=== PATIENT | male | born 1970 | race Caucasian/White ===

== ENCOUNTER 2019-10-24 18:28 | Inpatient (IN) | payer MEDICARE, OTHER ==
[~2019-10-24] VITALS: Ht 182.9 cm; Wt 95.3 kg
[2019-10-24] MEDS ORDERED: LORAZEPAM INJ 2 MG/ML VIAL ONE (18:38)
--- NOTE | 2019-10-24 18:40 | NUR ---
c/o abd sharp pain since 3pm today, 6/10 pain scale. Patient a/ox4, breathing even and unlabored, no sob noted, Dr. Felipe at bedside for eval.
--- NOTE | 2019-10-24 18:45 | NUR ---
Patient placed on o2 at 15lpm via NRB while patient was seizing. Seizure precaution observed.
--- NOTE | 2019-10-24 18:51 | NUR ---
GENERALIZED TONIC CLONIC SEIZURE WHILE DR BURGOS WAS DOING A MEDICAL EXAM,SL ESTABLISHED, MEDICATED WITH ATIVAN IVP ORDERED
[2019-10-24 18:56] LABS: BASOPHILS # (AUTO) 0.1 /CMM (0.0-0.2); BASOPHILS % (AUTO) 0.7 % (0.0-2.0); EOSINOPHILS % (AUTO) 2.2 % (0.0-6.0); HEMATOCRIT 48 % (39-51); HEMOGLOBIN 15.6 g/dL (13.5-17.5); LYMPHOCYTES # (AUTO) 5.3 /CMM (0.8-4.8); LYMPHOCYTES % (AUTO) 39.2 % (20.0-44.0); MEAN CORPUSCULAR HGB CONC 33 g/dl (31.0-36.0); MEAN CORPUSCULAR VOLUME 93 fL (80-96); MONOCYTES # (AUTO) 1.5 /CMM (0.1-1.30); MONOCYTES % (AUTO) 10.8 % (2.0-12.0); NEUTROPHILS # (AUTO) 6.3 /CMM (1.8-8.9); NEUTROPHILS % (AUTO) 47.1 % (43.0-81.0); PLATELET COUNT (AUTO) 325 /CMM (150-450); RED BLOOD CELL COUNT(AUTO) 5.14 MIL/uL (4.5-6.0); WHITE BLOOD COUNT (AUTO) 13.4 K/uL (4.3-11.0)
--- NOTE | 2019-10-24 18:58 | NUR ---
iv line established and blood drawn.
[2019-10-24] MEDS ORDERED: IV NS 0.9% 1,000 ML BAG IV ONE (19:00)
[2019-10-24] MEDS ORDERED: LEVETIRACETAM (500MG) 500 MG in IV NS 0.9% 100 ML IV ONE (19:00)
[2019-10-24] MEDS ORDERED: LORAZEPAM INJ 2 MG/ML VIAL IV ONE (19:00)
--- NOTE | 2019-10-24 19:11 | NUR ---
REPORT RECEIVED FROM HERNESTO GARCIA FOR [facility]
--- NOTE | 2019-10-24 19:12 | NUR ---
XRAY AT BEDSIDE
--- NOTE | 2019-10-24 19:13 | NUR ---
PT AAOX2, VSS, RESPIRATIONS EVEN AND UNLABORED ON RA W/ NAD NOTED. PT CONNECTED TO THE LASER BEAM MACHINE OPERATOR AND POX. CALL LIGHT WITHIN REACH. WILL CONTINUE TO MONITOR PT.
--- NOTE | 2019-10-24 19:25 | NUR ---
PT TAKEN TO RADIOLOGY FOR CT
--- NOTE | 2019-10-24 19:35 | NUR ---
PT BACK FROM RADIOLOGY
[2019-10-24 19:42] LABS: CALCIUM, SERUM 9.3 mg/dL (8.5-10.1); CARBON DIOXIDE 14 mmol/L (21-32); CHLORIDE 101 mmol/L (98-107); CREATININE 1.7 mg/dL (0.6-1.3); GLUCOSE 133 mg/dL (74-106); SODIUM SERUM 140 mmol/L (136-145); UREA NITROGEN, BLOOD 11 mg/dL (7-18)
[2019-10-24 19:48] LABS: ALANINE AMINOTRANSFERASE 58 U/L (12-78); ALBUMIN 4.1 g/dL (3.4-5.0); ALCOHOL, BLOOD < 3 mg/dL (0-0); ALKALINE PHOSPHATASE 94 U/L (46-116); ASPARTATE AMINOTRANSFERASE 25 U/L (15-37); BILIRUBIN,DIRECT 0.1 mg/dL (0.0-0.2); BILIRUBIN,TOTAL 0.4 mg/dL (0.2-1.0)
--- NOTE | 2019-10-24 20:20 | NUR ---
COVID SWAB COLLECTED AND SENT TO LAB
[2019-10-24] MEDS ORDERED: ACETAMINOPHEN 325 MG TABLET PO PRN (20:30)
[2019-10-24] MEDS ORDERED: MAG HYDROX/AL HYDROX/SIMETH 30 ML UDC PO PRN (20:30)
[2019-10-24] MEDS ORDERED: HYDROCODONE/APAP 5/325MG TABLET PO PRN (20:30)
[2019-10-24] MEDS ORDERED: ONDANSETRON HCL/PF 4 MG/2 ML VIAL IVP PRN (20:30)
[2019-10-24] MEDS ORDERED: Z GUARD REMEDY 2 OZ OINT TP PRN (20:30)
[2019-10-24] MEDS ORDERED: MAGNESIUM HYDROXIDE 30 ML UDC PO PRN (20:30)
--- NOTE | 2019-10-24 21:34 | NUR ---
URINE COLLECTED AND SENT TO LAB
--- NOTE | 2019-10-24 21:46 | NUR ---
COVID RESULTS RECEIVED FROM LAB (-)
--- NOTE | 2019-10-24 21:54 | NUR ---
NURSE WILL CALL BACK FOR REPORT
--- NOTE | 2019-10-24 22:10 | NUR ---
REPORT GIVEN TO HERNESTO WASHINGTON FOR [facility]
[2019-10-24] MEDS ORDERED: LORA-259 PO (22:19)
[2019-10-24] MEDS ORDERED: BUPR100T13 PO (22:21)
[2019-10-24] MEDS ORDERED: LITH300T3 PO (22:21)
[2019-10-24] MEDS ORDERED: OLAN10TA3 PO (22:22)
--- NOTE | 2019-10-24 22:51 | NUR ---
PT TRANSFERRED TO ROOM IN STABLE CONDITION
[2019-10-24] MEDS: IV NS 0.9% 1,000 ML IV PRN (22:52)
--- NOTE | 2019-10-24 23:00 | NUR ---
RATTLING MACHINE TENDER NOTED, RECEIVED 48 YEAR OLD MALE FROM ER DEPARTMENT VIA STRETCHER, A/O X4 ABLE TO MAKE DECISIONS KNOW, BREATHING EVEN AND UNLABORED, AT RA NO S/S OF ANY ACUTE RESPIRATORY DISTRESS NOTED, UNDER MEDICAL CONDITION OF DR SOMMERS, WITH ADMITTING DX SEIZURES, NO SS OF ANY PAIN, NO SEIZURE ACTIVITY NOTED, PATIENT PLACED IN BED WITH ALL SAFETY PRECAUTIONS, 2 BILATERAL S/R OF BED UP AND PADDED FOR SEIZURE PRECAUTIONS, ALL NEEDS PROVIDED, BED LOCKED AND LOWEST POSITION, CALL LIGHT W/W REACH, WILL CONTINUE TO MONITOR CLOSELY.
[2019-10-24] MEDS ORDERED: buPROPion 100 MG TABLET PO SCH (23:30)
[2019-10-24] MEDS ORDERED: LORAZEPAM INJ 2 MG/ML VIAL IV PRN (23:30)
[2019-10-25] VITALS: BP 148/77
[2019-10-25] MEDS ORDERED: BUPROPION XL 150 MG TAB.ER.24 PO SCH
[2019-10-25] MEDS: LORAZEPAM 1 MG TABLET PO SCH ×3 (00:42→16:17)
[2019-10-25 06:20] LABS: BASOPHILS % (AUTO) 0.5 % (0.0-2.0); EOSINOPHILS % (AUTO) 2.9 % (0.0-6.0); HEMATOCRIT 38 % (39-51); LYMPHOCYTES # (AUTO) 3.8 /CMM (0.8-4.8); LYMPHOCYTES % (AUTO) 40.4 % (20.0-44.0); MEAN CORPUSCULAR HGB CONC 34 g/dl (31.0-36.0); MEAN CORPUSCULAR VOLUME 90 fL (80-96); MONOCYTES % (AUTO) 10.4 % (2.0-12.0); NEUTROPHILS # (AUTO) 4.3 /CMM (1.8-8.9); NEUTROPHILS % (AUTO) 45.8 % (43.0-81.0); PLATELET COUNT (AUTO) 260 /CMM (150-450); RED BLOOD CELL COUNT(AUTO) 4.29 MIL/uL (4.5-6.0); WHITE BLOOD COUNT (AUTO) 9.3 K/uL (4.3-11.0)
--- NOTE | 2019-10-25 07:00 | NUR ---
GUN SEALING MACHINE OPERATOR CLOSING NOTES, PATIENT IN BED, A/X4, AT RA NO SOB OR DISTRESS NOTED, NSR IN TELE MONITOR WITH HR IN 80-90S MOSTLY DURING THE NIGHT, NO SIGNIFICANT CHANGE IN CONDITION DURING THE NIGHT, NO EPISODES OF SEIZURES, RIGHT HAND 20G PIV LINE WITH 0.9% NS INFUSING ORDERED, AND PATIENT TOLERATED WELL, ALL SAFETY MEASURERS IMPLEMENTED, CALL LIGHT IN REACH, BED IN LOCKED AND IN LOWEST POSITIONING, WILL ENDORSE CONTINUITY OF CARE TO ONCOMING NURSE.
[2019-10-25 07:06] LABS: CALCIUM, SERUM 8.2 mg/dL (8.5-10.1); MAGNESIUM 2.3 mg/dL (1.8-2.4); PHOSPHORUS 4.3 mg/dL (2.5-4.9); POTASSIUM 3.4 mmol/L (3.5-5.1)
--- NOTE | 2019-10-25 07:49 | NUR ---
DISTRICT LOSS PREVENTION MANAGER NOTE PATIENT IN BED, RESTING COMFORTABLY , ON RA NO SOB NOTED AT THIS TIME ,ON SEIZURE PRECAUTION ,SIDE RAILS UP AND PADDED, CALL LIGHT WITHIN REACH , PLAN OF CARE DISCUSSED WITH PATIENT, ON TELE MONITOR SR HR 83,BED IN LOWEST AND LOCKED POSITION ON IVF ORDERED, WILL CONT TO MONITOR
[2019-10-25 08:34] VITALS: BP 123/92
[2019-10-25] MEDS ORDERED: LITHIUM CARBONATE 150 MG CAPSULE PO SCH (09:00)
[2019-10-25] MEDS ORDERED: LEVETIRACETAM (250 MG) 250 MG TABLET PO SCH (09:00)
[2019-10-25] MEDS ORDERED: POTASSIUM CHLORIDE 20 MEQ TAB.PRT.SR PO SCH (10:00)
--- NOTE | 2019-10-25 10:35 | NUR ---
GLASS CALIBRATOR NOTE DR ZARAGOZA SPOKE WITH PATIENT ON FACE LEANNE
[2019-10-25 12:00] VITALS: BP 135/94
--- NOTE | 2019-10-25 13:04 | NUR ---
ROCK STAR NOTE PER HANK DEMPSEY RN MEASUREMENT PSYCHOLOGIST [place] PSYCH EVAL, FACE SHEET FAXED TO [facility] UNIT DR MEMBRENO RESEARCH CHIEF ENGINEER FOR TODAY
[2019-10-25] MEDS: IV NS 0.9% 1,000 ML IV PRN (15:50)
[2019-10-25 16:33] VITALS: BP 145/103
--- NOTE | 2019-10-25 17:00 | NUR ---
PODIATRY ASSISTANT NOTE CALLED RADIOLOGY ABOUT EEG SPOKE WITH BRITANY STATED WILL DO TOMORROW
[2019-10-25] MEDS ORDERED: OLANZAPINE 10 MG TABLET PO SCH (18:00)
--- NOTE | 2019-10-25 18:23 | NUR ---
OPERATIVE SUPERVISOR NOTE CONSENT FOR CT ANGIO GRAM DONE ,CALLED RADIOLOGY SPOKE WITH BRITANY STATED THAT WILL BE DONE TOMORROW
--- NOTE | 2019-10-25 18:46 | NUR ---
STRUCTURER NOTE SPOKE WITH RADIOLOGY STATED THAT IF CT ANGIO NOT STAT, WILL BE DONE TOMORROW NURSING RESOURCE SPECIALIST TEACHER SHELIA NOTIFIED
--- NOTE | 2019-10-25 19:26 | NUR ---
STERILE PROCESSING TECHNOLOGIST NOTE EEG DOING NOW AND DR MARSHALL NOTIFIED THAT CTCA WILL BE DONE TOMORROW
--- NOTE | 2019-10-25 19:30 | NUR ---
RAMP BOSS NOTE PT IN BED A/O X 4, NO SOB, NO DISTRESS OR DISCOMFORT NOTED. DENIES PAIN. SL RAC IS OCCLUDED, DC'D THE SL SECURED WITH 2X2 GAUZE, NO BLEEDING NOTED. WILL REINSERT NEW LINE AFTER EEG WHICH IS IN PROGRESS. ON TELE SR HR 84. SIDE RAILS UP X 2 AND CALL LIGHT WITHIN REACH. VSS. CONTINUE TO MONITOR HIM.
[2019-10-25 20:00] VITALS: BP 135/94
[2019-10-25] MEDS: LITHIUM CARBONATE 150 MG CAPSULE PO SCH (20:07)
--- NOTE | 2019-10-25 23:00 | NUR ---
SALES FLOOR TEAM MEMBER NOTE PT WOKE UP AND INSERTED NEW IV LINE IN RT HAND #20 G WITH GOOD BACK FLOW OF BLOOD. RESUMED IVF NS AT 75 ML/HR, NO S/S OF INFILTRATION NOTED.
--- NOTE | 2019-10-26 01:02 | NUR ---
EXTRUSION MANAGER NOTE INFORMED SECOND CUTTER AMDELEINE REGARDING ABNORMAL EEG RESULT RHYTHEM. PER SECOND CUTTER NO NEW ORDER AT THIS TIME. ALSO PT DENIES ANY CHEST PAIN OR DISCOMFORT. PT ASLEEP AND EASILY AROUSABLE.
[2019-10-26 04:00] VITALS: BP 141/101
--- NOTE | 2019-10-26 06:34 | NUR ---
OPERATIONS FORESTER NOTE LFA NEW LINE INSERTED #20 G WITH GOOD BACK FLOW OF BLOOD BY CHARGE NURSE CHITO. ON TELE SR 80. PT IN BED AWAKE. NO DISTRESS OR DISCOMFORT NOTED. DENIES PAIN. IVF INFUSING WELL , NO S/S OF INFILTRATION NOTED. ALL NEEDS ATTENDED. WILL ENDORSE TO DAY SHIFT NURSE FOR CONTINUE TO CARE.
[2019-10-26 07:21] LABS: CALCIUM, SERUM 8.6 mg/dL (8.5-10.1); POTASSIUM 4.3 mmol/L (3.5-5.1)
--- NOTE | 2019-10-26 07:22 | NUR ---
THEATRICAL SCENIC DESIGNER/MIKE NOTE RECEIVED PT IN BED ALERT, AWAKE AND ORIENTED X4. PT IS CURRENTLY IN STABLE CONDITION AT THIS TIME. PT IS ON ROOM AIR SATURATING AT 98% AT THIS TIME. PT IS ON TELE MONITORING WITH SINUS RHYTHM CURRENTLY. PT IS AMBULATORY AND ABLE TO GO TO THE RESTROOM WITHOUT ASSISTANCE. PT IS ON REGULAR DIET. PT HAS A RIGHT HAND 20' AND A LEFT FOREARM 20' INTACT, PATENT AND FLUSHING WELL. NO ACUTE DISTRESS OR SOB NOTED AT THIS TIME. PT IS AWARE THAT HE HAS A CT ANGIO THIS MORNING. PT IS CURRENTLY NPO. MORNING MEDS HELD DUE TO PROCEDURE. CHARGE NURSE AWARE OF PROCEDURE.CALL LIGHT WITHIN REACH AND FUNCTIONING. BED LOCKED AND IN LOWEST POSITION. WILL CONTINUE TO MONITOR AND ASSESS PT.
--- NOTE | 2019-10-26 07:27 | NUR ---
SODA FOUNTAIN OPERATOR/MIKE NOTE PT WAS PICKED UP BY CT VIA WHEELCHAIR. PT LEFT IN STABLE CONDITION. WILL AWAIT PT'S RETURN.
[2019-10-26] MEDS ORDERED: NITROGLYCERIN 0.4 MG/TAB BOTTLE SL ONE (07:30)
[2019-10-26] MEDS ORDERED: METOPROLOL TARTRATE INJ 5 MG/5 ML AMPUL IVP PRN (07:30)
[2019-10-26] MEDS ORDERED: IV NS 0.9% 250 ML IV ONE (07:32)
[2019-10-26] MEDS ORDERED: IOHEXOL-350 100 ML VIAL IV ONE (07:32)
[2019-10-26] MEDS ORDERED: NITROGLYCERIN 0.4 MG/TAB BOTTLE ONE (07:36)
[2019-10-26] MEDS ORDERED: METOPROLOL TARTRATE INJ 5 MG/5 ML AMPUL ONE (07:37)
--- NOTE | 2019-10-26 07:42 | NUR ---
Patient refused CTCA exam, Dominga Abreu RN made aware.
--- NOTE | 2019-10-26 07:42 | NUR ---
CATALYST OPERATOR CHIEF NOTE PT WAS TRANSFERRED BY JEANIE BACK TO ROOM. PT IS IN STABLE CONDITION AT THIS TIME. NO COMPLAINS OF PAIN OR DISCOMFORT. PT REFUSED TO DO THE CT ANGIO AND RETURNED BACK TO THE UNIT. INFORMED DR. MARSHALL. CHARGE NURSE AWARE. PT RESUMED DIET. WILL CONTINUE TO MONITOR AND ASSESS PT.
--- NOTE | 2019-10-26 07:44 | NUR ---
Patient transported back to [place] [id number] via wheelchair. VSS.
[2019-10-26 08:00] VITALS: BP 123/90
[2019-10-26 08:23] VITALS: BP 123/90
[2019-10-26] MEDS: LITHIUM CARBONATE 150 MG CAPSULE PO SCH (08:23)
[2019-10-26] MEDS: LORAZEPAM 1 MG TABLET PO SCH (08:23)
[2019-10-26] MEDS ORDERED: VALSARTAN 80 MG TABLET PO SCH (09:00)
[2019-10-26] MEDS ORDERED: BUPROPION XL 150 MG TAB.ER.24 PO SCH (13:00)
[2019-10-26] MEDS ORDERED: OLAN10TA3 PO (14:06)
--- NOTE | 2019-10-26 14:45 | NUR ---
PATIENT DISCHARGE AMBULATORY DISCHARGE INSTRUCTION GIVEN.IV D/C.
[2019-10-26] MEDS ORDERED: OLANZAPINE 10 MG TABLET PO SCH (18:00)
== END 2019-10-26 14:37 | disposition home or self-care (01) | DRG 100 ==
LOC: ER 18:30 → TELE1 21:50 → MEDSG1 10-26 08:02
PROVIDERS: ADMIT Internal Medicine; ATTEND Nurse Practitioner Acute Care
DX: R56.9 Unspecified convulsions (principal); N17.0 Acute kidney failure with tubular necrosis; F31.60 Bipolar disorder, current episode mixed, unspecified; R07.89 Other chest pain; E87.6 Hypokalemia; F41.9 Anxiety disorder, unspecified; D72.829 Elevated white blood cell count, unspecified; M84.48XS Pathological fracture, other site, sequela; T43.295A Adverse effect of other antidepressants, initial encounter; Y92.009 Unspecified place in unspecified non-institutional (private) residence as the place of occurrence of the external cause; F39 Unspecified mood [affective] disorder; I12.9 Hypertensive chronic kidney disease with stage 1 through stage 4 chronic kidney disease, or unspecified chronic kidney disease; N18.9 Chronic kidney disease, unspecified; T42.4X5A Adverse effect of benzodiazepines, initial encounter; T43.595A Adverse effect of other antipsychotics and neuroleptics, initial encounter
CPT/HCPCS: 36415; 70450-TC; 71045-TC; 80048-TC; 80076-TC; 80305; 82962-TC; 83735-TC; 84100-TC; 84484-TC; 85025-TC; 85730-TC; 87081-TC; 93307-TC; 95819-TC; C9803-CS; G0378; G0480; J1953; J2060; J3490; J7030; J7050; Q9967

== ENCOUNTER 2019-12-19 22:24 | Emergency (ER) | payer MEDICARE, OTHER ==
[~2019-12-19] VITALS: Ht 182.9 cm; Wt 95.3 kg
[~2019-12-19 22:24] MED LIST: LITH300T3 PO; LORA-259 PO; OLAN10TA3 PO
--- NOTE | 2019-12-19 22:25 | NUR ---
[id number] FROM HOME S/P WITNESSED SEIZURE LASTING APPROX 1 MIN. -TRAUMA PER RA, BS 100,PT AAOX4, AMBULATOR, -SOB, NAD NOTED. VSS, PENDING MD WALDRON
[2019-12-19] MEDS ORDERED: LEVETIRACETAM (500MG) 500 MG in IV NS 0.9% 100 ML IV ONE (22:30)
[2019-12-19] MEDS ORDERED: IV NS 0.9% 500 ML BAG IV ONE (22:30)
[2019-12-19] MEDS ORDERED: LORAZEPAM INJ 2 MG/ML VIAL IVP ONE (22:30)
[2019-12-19] MEDS ORDERED: LEVETIRACETAM (500MG) 500 MG/5 ML VIAL IV ONE (22:43)
[2019-12-19] MEDS ORDERED: LORAZEPAM INJ 2 MG/ML VIAL ONE (22:44)
[2019-12-19 22:47] LABS: BASOPHILS # (AUTO) 0.2 /CMM (0.0-0.2); BASOPHILS % (AUTO) 2.1 % (0.0-2.0); EOSINOPHILS % (AUTO) 4.4 % (0.0-6.0); HEMATOCRIT 43 % (39-51); HEMOGLOBIN 14.2 g/dL (13.5-17.5); LYMPHOCYTES # (AUTO) 3.4 /CMM (0.8-4.8); LYMPHOCYTES % (AUTO) 41.9 % (20.0-44.0); MEAN CORPUSCULAR HGB CONC 33 g/dl (31.0-36.0); MEAN CORPUSCULAR VOLUME 89 fL (80-96); MONOCYTES # (AUTO) 0.8 /CMM (0.1-1.30); MONOCYTES % (AUTO) 9.7 % (2.0-12.0); NEUTROPHILS # (AUTO) 3.4 /CMM (1.8-8.9); NEUTROPHILS % (AUTO) 41.9 % (43.0-81.0); PLATELET COUNT (AUTO) 310 /CMM (150-450); RED BLOOD CELL COUNT(AUTO) 4.78 MIL/uL (4.5-6.0); WHITE BLOOD COUNT (AUTO) 8.1 K/uL (4.3-11.0)
[2019-12-19 22:53] LABS: CALCIUM, SERUM 9.2 mg/dL (8.5-10.1); CARBON DIOXIDE 22 mmol/L (21-32); CHLORIDE 102 mmol/L (98-107); CREATININE 1.3 mg/dL (0.6-1.3); GLUCOSE 106 mg/dL (74-106); POTASSIUM 3.8 mmol/L (3.5-5.1); SODIUM SERUM 137 mmol/L (136-145); UREA NITROGEN, BLOOD 7 mg/dL (7-18)
[2019-12-19 22:59] LABS: ALANINE AMINOTRANSFERASE 51 U/L (12-78); ALBUMIN 3.8 g/dL (3.4-5.0); ALCOHOL, BLOOD < 3 mg/dL (0-0); ALKALINE PHOSPHATASE 80 U/L (46-116); ASPARTATE AMINOTRANSFERASE 21 U/L (15-37); BILIRUBIN,DIRECT 0.1 mg/dL (0.0-0.2); BILIRUBIN,TOTAL 0.2 mg/dL (0.2-1.0); TOTAL PROTEIN, SERUM 7.4 g/dL (6.4-8.2)
--- NOTE | 2019-12-20 00:24 | NUR ---
Patient discharged to home in stable condition. Written and verbal after care instructions given. Patient verbalizes understanding of instruction. IV removed. Catheter intact and site benign. Pressure and 4x4 applied to site. No bleeding noted.
[2019-12-20 03:26] VITALS: BP 155/100
== END 2019-12-20 00:24 | disposition home or self-care (01) ==
LOC: ER 22:25
DX: R56.9 Unspecified convulsions (principal); R51.9 Headache, unspecified; I10 Essential (primary) hypertension; F31.9 Bipolar disorder, unspecified; F41.9 Anxiety disorder, unspecified; Z79.899 Other long term (current) drug therapy
CPT/HCPCS: 36415; 70450; 71045; 80048; 80076; 80307; 80320; 84484; 85025; 93005; 96365; 96375; 99285; J1953 ×2; J2060; J7030 ×2; J7040; G0480

== ENCOUNTER 2020-01-23 21:40 | Emergency (ER) | payer MEDICARE, OTHER ==
[~2020-01-23] VITALS: Ht 182.9 cm; Wt 88.5 kg
[2020-01-23] MEDS ORDERED: ONDANSETRON HCL/PF 4 MG/2 ML VIAL ONE (23:25)
[2020-01-23] MEDS ORDERED: IV NS 0.9% 1,000 ML BAG IV ONE (23:30)
[2020-01-23] MEDS ORDERED: ONDANSETRON HCL/PF 4 MG/2 ML VIAL IVP ONE (23:30)
[2020-01-23 23:33] LABS: BASOPHILS % (AUTO) 0.3 % (0.0-2.0); EOSINOPHILS % (AUTO) 0.3 % (0.0-6.0); HEMATOCRIT 53 % (39-51); LYMPHOCYTES # (AUTO) 2.7 /CMM (0.8-4.8); MEAN CORPUSCULAR HGB CONC 34 g/dl (31.0-36.0); MEAN CORPUSCULAR VOLUME 89 fL (80-96); MONOCYTES # (AUTO) 0.7 /CMM (0.1-1.30); NEUTROPHILS # (AUTO) 5.3 /CMM (1.8-8.9); NEUTROPHILS % (AUTO) 60.4 % (43.0-81.0); PLATELET COUNT (AUTO) 370 /CMM (150-450); RED BLOOD CELL COUNT(AUTO) 6.04 MIL/uL (4.5-6.0); WHITE BLOOD COUNT (AUTO) 8.8 K/uL (4.3-11.0)
[2020-01-23 23:42] LABS: CALCIUM, SERUM 9.8 mg/dL (8.5-10.1); CREATININE 0.9 mg/dL (0.6-1.3); POTASSIUM 3.6 mmol/L (3.5-5.1)
[2020-01-23 23:47] LABS: ALBUMIN 4.6 g/dL (3.4-5.0); BILIRUBIN,DIRECT 0.1 mg/dL (0.0-0.2); BILIRUBIN,TOTAL 0.4 mg/dL (0.2-1.0)
[2020-01-24 00:08] LABS: LYMPHOCYTES % (MANUAL) 35 % (16-48); MONOCYTES % (MANUAL) 8 % (0-11.0); NEUTROPHILS % (MANUAL) 57 (42-76)
[2020-01-24 00:12] VITALS: BP 147/93
--- NOTE | 2020-01-24 00:20 | NUR ---
pcr swab collected, sent to lab.
--- NOTE | 2020-01-24 00:20 | NUR ---
Patient discharged to home in stable condition. Written and verbal after care instructions given. Patient verbalizes understanding of instruction.
--- NOTE | 2020-01-24 00:20 | NUR ---
IV removed. Catheter intact and site benign. Pressure and 4x4 applied to site. No bleeding noted.
--- NOTE | 2020-01-24 22:39 | NUR ---
LAB CALLED REGARDING NEGATIVE COVID RESULT
== END 2020-01-24 00:21 | disposition home or self-care (01) ==
LOC: ER 21:42
DX: R10.10 Upper abdominal pain, unspecified (principal); Z20.828 Contact with and (suspected) exposure to other viral communicable diseases; F31.9 Bipolar disorder, unspecified; I10 Essential (primary) hypertension; K21.9 Gastro-esophageal reflux disease without esophagitis; Z82.49 Family history of ischemic heart disease and other diseases of the circulatory system
CPT/HCPCS: 36415; 80048; 80076; 83690; 85007; 85025; 96361; 96374; 99283; J2405; J7030; C9803; U0003

== ENCOUNTER 2021-03-26 10:15 | Emergency (ER) | payer MEDICARE, OTHER ==
[~2021-03-26] VITALS: Ht 182.9 cm; Wt 87.1 kg
--- NOTE | 2021-03-26 10:50 | NUR ---
The patient bibs for c/o "I was mad last night and punched a wall Right mid finger hurts. Also been Having blood in stool last one 2d ago. I Drink Alcohol like a fish". The patient is alert and oriented x3. Denies SOB. In room air, respiration regular and unlabored. Will continue to monitor the patient.
--- NOTE | 2021-03-26 11:26 | NUR ---
EXPORT DOCUMENTS CLERK AT THE BEDSIDE
[2021-03-26] MEDS ORDERED: IV NS 0.9% 500 ML BAG IV ONE (11:30)
[2021-03-26] MEDS ORDERED: HYDROCODONE/APAP 5/325MG TABLET PO ONE (11:30)
[2021-03-26 11:57] LABS: BASOPHILS # (AUTO) 0.1 K/uL (0.0-0.2); BASOPHILS % (AUTO) 0.6 % (0.0-2.0); EOSINOPHILS % (AUTO) 0.2 % (0.0-6.0); HEMATOCRIT 47 % (39-51); LYMPHOCYTES # (AUTO) 1.6 K/uL (0.8-4.8); LYMPHOCYTES % (AUTO) 15.6 % (20.0-44.0); MEAN CORPUSCULAR HGB CONC 34 g/dl (31.0-36.0); MEAN CORPUSCULAR VOLUME 89 fL (80-96); MONOCYTES # (AUTO) 0.5 K/uL (0.1-1.30); MONOCYTES % (AUTO) 4.6 % (2.0-12.0); NEUTROPHILS # (AUTO) 7.9 K/uL (1.8-8.9); PLATELET COUNT (AUTO) 335 K/uL (150-450); RED BLOOD CELL COUNT(AUTO) 5.31 MIL/uL (4.5-6.0); WHITE BLOOD COUNT (AUTO) 9.9 K/uL (4.3-11.0)
[2021-03-26] MEDS ORDERED: HYDROCODONE/APAP 5/325MG TABLET ONE (12:04)
[2021-03-26 12:18] LABS: ALBUMIN 3.9 g/dL (3.4-5.0); BILIRUBIN,DIRECT 0.1 mg/dL (0.0-0.2); BILIRUBIN,TOTAL 0.4 mg/dL (0.2-1.0); CREATININE 0.8 mg/dL (0.6-1.3); POTASSIUM 4.7 mmol/L (3.5-5.1); TOTAL PROTEIN, SERUM 7.8 g/dL (6.4-8.2)
[2021-03-26 16:58] LABS: ALCOHOL, BLOOD 48 mg/dL (0-0)
[2021-03-26 16:59] LABS: ACETAMINOPHEN < 0 ug/ml (10-30)
--- NOTE | 2021-03-26 18:32 | NUR ---
URINE COLLECTED AND SENT TO THE LAB
--- NOTE | 2021-03-26 18:57 | NUR ---
COVID ANTIGEN SWAB DONE AND SENT TO THE LAB
[2021-03-26 19:56] LABS: BILIRUBIN,URINE NEGATIVE (NEGATIVE); COLOR,URINE YELLOW (YELLOW); LEUKOCYTE ESTERASE ,URINE NEGATIVE (NEGATIVE); NITRITE, URINE NEGATIVE (NEGATIVE); PROTEIN,URINE NEGATIVE (NEGATIVE); UGLUCOSE NEGATIVE (NEGATIVE); UROBILINOGEN,URINE 0.2 EU/dL (0.2)
[2021-03-26 20:22] LABS: BACTERIA,URINE None seen /HPF (None Seen); RBC,URINE 0-2 /HPF (0-2); SQUAMOUS EPITHELIAL CELL,UR Rare /HPF (None Seen); WBC,URINE 0-2 /HPF (0-3)
--- NOTE | 2021-03-26 23:36 | NUR ---
FACESHEET AND CLINICALS FAXED TO [facility].
--- NOTE | 2021-03-27 07:50 | NUR ---
PATIENT AWAKE, AAOX3, BREATHING EVEN AND NON LABORED, BREAKFAST PROVIDED.
--- NOTE | 2021-03-27 08:48 | NUR ---
CALLED INTAKE AWAITING FEEDBACK
--- NOTE | 2021-03-27 11:11 | NUR ---
Spoke with Pietro from [facility]. Need psych note with criteria for inpatient mental health.
[2021-03-27] MEDS ORDERED: LORAZEPAM 1 MG TABLET ONE (11:27)
[2021-03-27] MEDS ORDERED: LORAZEPAM INJ 2 MG/ML VIAL IV ONE (11:30)
--- NOTE | 2021-03-27 13:21 | NUR ---
Pt. accepted [place] [facility].
--- NOTE | 2021-03-27 15:00 | NUR ---
PT ACCEPTED UNDER DR. TESFAYE [phone] X 240 TRANSPORT WILL ARRANGED BY [facility].
--- NOTE | 2021-03-27 15:17 | NUR ---
REPORT GIVEN TO NURSE ROY
--- NOTE | 2021-03-27 15:18 | NUR ---
REPORT GIVEN TO NURSE ROY FROM [facility]
[2021-03-27 16:30] VITALS: BP 130/82
--- NOTE | 2021-03-27 16:45 | NUR ---
PICKED UP BY TRANSPORT IN STABLE CONDITION
== END 2021-03-27 17:07 ==
LOC: ER 10:17
DX: M79.641 Pain in right hand (principal); F31.9 Bipolar disorder, unspecified; F10.10 Alcohol abuse, uncomplicated; Y90.2 Blood alcohol level of 40-59 mg/100 ml; F17.210 Nicotine dependence, cigarettes, uncomplicated; Z82.49 Family history of ischemic heart disease and other diseases of the circulatory system; I10 Essential (primary) hypertension; Z79.899 Other long term (current) drug therapy; Z86.69 Personal history of other diseases of the nervous system and sense organs; Z20.822 Contact with and (suspected) exposure to COVID-19
CPT/HCPCS: 36415; 73130; 80048; 80076; 80143; 80307; 80320; 81001; 83690; 85025; 85730; 87426; 96360; 99285; 99406; J7040; C9803; G0480

== ENCOUNTER 2021-04-05 06:46 | Emergency (ER) | payer MEDICARE, OTHER ==
[~2021-04-05] VITALS: Ht 177.8 cm; Wt 65.8 kg
[2021-04-05 07:01] VITALS: BP 126/76
[2021-04-05] MEDS ORDERED: LORA-258 PO (07:29)
[2021-04-05] MEDS ORDERED: DULO20CA PO (07:29)
== END 2021-04-05 07:41 | disposition home or self-care (01) ==
LOC: ER 06:48
DX: Z76.0 Encounter for issue of repeat prescription (principal); I10 Essential (primary) hypertension; F41.9 Anxiety disorder, unspecified; F32.9 Major depressive disorder, single episode, unspecified; F17.200 Nicotine dependence, unspecified, uncomplicated; Z87.728 Personal history of other specified (corrected) congenital malformations of nervous system and sense organs; Z87.738 Personal history of other specified (corrected) congenital malformations of digestive system

== ENCOUNTER 2021-04-13 06:59 | Emergency (ER) | payer MEDICARE, OTHER ==
[~2021-04-13 06:59] MED LIST changes: +DULO20CA PO; +LORA-258 PO
--- NOTE | 2021-04-13 07:19 | NUR ---
called for triage not in waiting room
--- NOTE | 2021-04-13 07:35 | NUR ---
CALLED TO TRIAGE NO ANSWER.
[2021-04-13] MEDS ORDERED: LORA-259 PO (09:44)
== END 2021-04-13 07:36 | disposition left against medical advice (07) ==
LOC: ER 07:01
DX: Z53.21 Procedure and treatment not carried out due to patient leaving prior to being seen by health care provider (principal)

== ENCOUNTER 2021-04-13 07:57 | Emergency (ER) | payer MEDICARE, OTHER ==
[~2021-04-13] VITALS: Ht 182.9 cm; Wt 87.1 kg
[2021-04-13 08:02] VITALS: BP 146/106
--- NOTE | 2021-04-13 08:02 | NUR ---
DR AARON TALKING TO THE PATIENT FOR EVAL
--- NOTE | 2021-04-13 08:05 | NUR ---
BIB SELF C/O R SIDED HEAD PAIN "ITS LIKE PULSATING". RATES PAIN 3/10. WILL CONTINUE TO MONITOR THE PATIENT.
[2021-04-13] MEDS ORDERED: LORA-259 PO (09:44)
--- NOTE | 2021-04-13 09:59 | NUR ---
Patient discharged to home in stable condition. Written and verbal after care instructions given. Patient verbalizes understanding of instruction.
== END 2021-04-13 09:59 | disposition home or self-care (01) ==
LOC: ER 07:58
DX: R51.9 Headache, unspecified (principal); F41.9 Anxiety disorder, unspecified; I10 Essential (primary) hypertension; K21.9 Gastro-esophageal reflux disease without esophagitis; F32.A Depression, unspecified; F17.200 Nicotine dependence, unspecified, uncomplicated; Z79.899 Other long term (current) drug therapy
CPT/HCPCS: 70450-TC

== ENCOUNTER 2021-05-06 07:39 | Emergency (ER) | payer MEDICARE ==
[~2021-05-06] VITALS: Ht 182.9 cm; Wt 87.1 kg
[2021-05-06 07:48] VITALS: BP 136/99
--- NOTE | 2021-05-06 07:50 | NUR ---
GROIN AREA "RASH" NOTED LAST NIGHT. "ITCHY AND STINGY". AMBULATORY AAOX4. BEING SEED BY MD AT BED SIDE.
[2021-05-06] MEDS ORDERED: CLOT15CR35 TP (07:53)
== END 2021-05-06 08:09 | disposition home or self-care (01) ==
LOC: ER 07:39
DX: B35.6 Tinea cruris (principal); I10 Essential (primary) hypertension; F41.9 Anxiety disorder, unspecified; F32.A Depression, unspecified; F17.200 Nicotine dependence, unspecified, uncomplicated; Z86.69 Personal history of other diseases of the nervous system and sense organs; Z87.19 Personal history of other diseases of the digestive system; Z79.52 Long term (current) use of systemic steroids; Z79.899 Other long term (current) drug therapy

== ENCOUNTER 2021-05-12 08:35 | Emergency (ER) | payer MEDICARE, OTHER ==
[~2021-05-12] VITALS: Ht 182.9 cm; Wt 87.1 kg
[~2021-05-12 08:35] MED LIST changes: +CLOT15CR35 TP
--- NOTE | 2021-05-12 08:38 | NUR ---
CALLED TO TRIAGE,NOT READY TO COME IN.
[2021-05-12 09:17] VITALS: BP 159/106
--- NOTE | 2021-05-12 09:22 | NUR ---
AT BEDSIDE FOR EVAL.
[2021-05-12] MEDS ORDERED: BACI28.42 TP (09:46)
[2021-05-12] MEDS ORDERED: CLIN300C12 PO (09:46)
[2021-05-12] MEDS ORDERED: TDAP [DIPH/PERTUSSIS/TET] 0.5 ML VIAL IM ONE ×2 (09:54→10:00)
--- NOTE | 2021-05-12 09:58 | NUR ---
TECH AT BEDSIDE FOR WOUND CLEANING AND DRESSING.
--- NOTE | 2021-05-12 10:09 | NUR ---
Patient discharged to home in stable condition. Written and verbal after care instructions given. Patient verbalizes understanding of instruction.
== END 2021-05-12 10:10 | disposition home or self-care (01) ==
LOC: ER 08:35
DX: S02.5XXA Fracture of tooth (traumatic), initial encounter for closed fracture (principal); S61.011A Laceration without foreign body of right thumb without damage to nail, initial encounter; T23.201A Burn of second degree of right hand, unspecified site, initial encounter; M79.641 Pain in right hand; F41.9 Anxiety disorder, unspecified; F32.A Depression, unspecified; F17.200 Nicotine dependence, unspecified, uncomplicated; Z86.69 Personal history of other diseases of the nervous system and sense organs; Z87.19 Personal history of other diseases of the digestive system; Z79.52 Long term (current) use of systemic steroids; Z79.899 Other long term (current) drug therapy; W25.XXXA Contact with sharp glass, initial encounter; Y93.89 Activity, other specified; Y92.89 Other specified places as the place of occurrence of the external cause; Y99.8 Other external cause status; W10.9XXA Fall (on) (from) unspecified stairs and steps, initial encounter
CPT/HCPCS: 90715

== ENCOUNTER 2021-06-25 15:35 | Emergency (ER) | payer MEDICARE, OTHER ==
[~2021-06-25] VITALS: Ht 182.9 cm; Wt 86.2 kg
[~2021-06-25 15:35] MED LIST changes: +BACI28.42 TP; +CLIN300C12 PO
[2021-06-25 15:45] VITALS: BP 146/100
[2021-06-25] MEDS ORDERED: LORAZEPAM 0.5 MG TABLET PO ONE (16:00)
[2021-06-25] MEDS ORDERED: LISI20TA30 PO (16:01)
[2021-06-25] MEDS ORDERED: DULO60CA45 PO (16:01)
[2021-06-25] MEDS ORDERED: LORAZEPAM 0.5 MG TABLET ONE (16:08)
--- NOTE | 2021-06-25 16:17 | NUR ---
Patient discharged to home in stable condition. Written and verbal after care instructions given. Patient verbalizes understanding of instruction.
== END 2021-06-25 16:18 | disposition home or self-care (01) ==
LOC: ER 15:37
DX: F41.9 Anxiety disorder, unspecified (principal); Z76.0 Encounter for issue of repeat prescription; I10 Essential (primary) hypertension; F32.A Depression, unspecified; F17.200 Nicotine dependence, unspecified, uncomplicated; Z86.69 Personal history of other diseases of the nervous system and sense organs; Z87.19 Personal history of other diseases of the digestive system; Z79.899 Other long term (current) drug therapy

== ENCOUNTER 2021-06-27 23:47 | Emergency (ER) | payer MEDICARE, OTHER ==
[~2021-06-27] VITALS: Ht 182.9 cm; Wt 86.2 kg
[~2021-06-27 23:47] MED LIST changes: +DULO60CA45 PO; +LISI20TA30 PO
--- NOTE | 2021-06-28 00:15 | NUR ---
TO ER BED 19. BIBS C/O WOUNDS ON R HAND X 3-5 WEEKS. PT STATES "WOUNDS FROM CUT AND CHAMPION". 3 PUNCTURE WOUNDS NOTED. OPEN TO AIR, NO DRAINAGE. AWAITING MD WALDRON
--- NOTE | 2021-06-28 00:30 | NUR ---
STATION BAGGAGE AGENT AT PT'S BEDSIDE
[2021-06-28 00:50] VITALS: BP 131/78
--- NOTE | 2021-06-28 00:50 | NUR ---
Patient discharged to home in stable condition. Written and verbal after care instructions given. Patient verbalizes understanding of instruction.
[2021-06-29] MEDS ORDERED: ALLO100T PO (17:25)
== END 2021-06-28 00:50 | disposition home or self-care (01) ==
LOC: ER 23:52
DX: S61.011D Laceration without foreign body of right thumb without damage to nail, subsequent encounter (principal); I10 Essential (primary) hypertension; F41.9 Anxiety disorder, unspecified; F32.A Depression, unspecified; Z86.69 Personal history of other diseases of the nervous system and sense organs; Z87.19 Personal history of other diseases of the digestive system; X58.XXXD Exposure to other specified factors, subsequent encounter
CPT/HCPCS: 73140-TC

== ENCOUNTER 2021-06-29 17:10 | Emergency (ER) | payer MEDICARE, OTHER ==
[~2021-06-29] VITALS: Ht 182.9 cm; Wt 86.2 kg
[2021-06-29 17:10] VITALS: BP 120/80
--- NOTE | 2021-06-29 17:20 | NUR ---
seen and examined by .
[2021-06-29] MEDS ORDERED: ALLO100T PO (17:25)
[2021-06-29] MEDS ORDERED: LORAZEPAM 0.5 MG TABLET ONE (17:29)
[2021-06-29] MEDS ORDERED: LORAZEPAM 1 MG TABLET PO ONE (17:30)
--- NOTE | 2021-06-29 17:33 | NUR ---
Patient discharged to home in stable condition. Written and verbal after care instructions given. Patient verbalizes understanding of instruction.
== END 2021-06-29 17:33 | disposition home or self-care (01) ==
LOC: ER 17:19
DX: F41.9 Anxiety disorder, unspecified (principal); M10.9 Gout, unspecified; I10 Essential (primary) hypertension; F32.A Depression, unspecified; F17.200 Nicotine dependence, unspecified, uncomplicated; Z86.69 Personal history of other diseases of the nervous system and sense organs; Z87.19 Personal history of other diseases of the digestive system; Z79.899 Other long term (current) drug therapy

== ENCOUNTER 2021-07-08 18:45 | Emergency (ER) | payer MEDICARE, OTHER ==
[~2021-07-08] VITALS: Ht 185.4 cm; Wt 86.2 kg
[~2021-07-08 18:45] MED LIST changes: +ALLO100T PO
--- NOTE | 2021-07-08 18:54 | NUR ---
called to triage. not ready to come in,waiting for friend
[2021-07-08 19:24] VITALS: BP 122/80
== END 2021-07-08 19:38 | disposition home or self-care (01) ==
LOC: ER 18:50
DX: S80.211A Abrasion, right knee, initial encounter (principal); I10 Essential (primary) hypertension; F41.9 Anxiety disorder, unspecified; F32.A Depression, unspecified; F17.200 Nicotine dependence, unspecified, uncomplicated; Z86.69 Personal history of other diseases of the nervous system and sense organs; Z87.19 Personal history of other diseases of the digestive system; Z79.899 Other long term (current) drug therapy; V87.8XXA Person injured in other specified noncollision transport accidents involving motor vehicle (traffic), initial encounter; Y93.89 Activity, other specified; Y92.89 Other specified places as the place of occurrence of the external cause; Y99.8 Other external cause status

== ENCOUNTER 2023-06-27 13:55 | Emergency (ER) | payer MEDICARE, OTHER ==
[~2023-06-27] VITALS: Ht 180.3 cm; Wt 74.8 kg
[2023-06-27] MEDS ORDERED: BUPR-319 PO (14:44)
[2023-06-27 14:50] VITALS: BP 132/95; TEMP 98.1
[2023-06-27 14:52] VITALS: O2SAT 98
== END 2023-06-27 14:53 | disposition home or self-care (01) ==
LOC: ER 14:14
DX: F32.A Depression, unspecified (principal); Z76.0 Encounter for issue of repeat prescription; I10 Essential (primary) hypertension; K21.9 Gastro-esophageal reflux disease without esophagitis; F17.200 Nicotine dependence, unspecified, uncomplicated; Z79.899 Other long term (current) drug therapy

== ENCOUNTER 2023-08-02 13:42 | Emergency (ER) | payer MEDICARE, OTHER ==
[~2023-08-02] VITALS: Ht 180.3 cm; Wt 78.0 kg
[~2023-08-02 13:42] MED LIST changes: +BUPR-319 PO
[2023-08-02] MEDS ORDERED: BUPR300T52 PO (14:32)
[2023-08-02 14:43] VITALS: BP 133/77; TEMP 98.4; O2SAT 100
== END 2023-08-02 14:44 | disposition home or self-care (01) ==
LOC: ER 13:48
DX: F32.A Depression, unspecified (principal); R56.9 Unspecified convulsions; I10 Essential (primary) hypertension; K21.9 Gastro-esophageal reflux disease without esophagitis; F41.9 Anxiety disorder, unspecified; F19.10 Other psychoactive substance abuse, uncomplicated; F17.200 Nicotine dependence, unspecified, uncomplicated; Z76.0 Encounter for issue of repeat prescription

== ENCOUNTER 2023-10-19 13:06 | Emergency (ER) | payer MEDICARE, OTHER ==
[~2023-10-19] VITALS: Ht 180.3 cm; Wt 74.8 kg
[~2023-10-19 13:06] MED LIST changes: +BUPR300T52 PO
[2023-10-19 13:13] VITALS: BP 140/73; TEMP 98.4
[2023-10-19] MEDS ORDERED: BUPR300T52 PO (13:48)
[2023-10-19 13:58] VITALS: O2SAT 98
== END 2023-10-19 13:59 | disposition home or self-care (01) ==
LOC: ER 13:10
DX: Z76.0 Encounter for issue of repeat prescription (principal); I10 Essential (primary) hypertension; F31.9 Bipolar disorder, unspecified; F41.9 Anxiety disorder, unspecified; F17.210 Nicotine dependence, cigarettes, uncomplicated

== ENCOUNTER 2023-11-21 11:57 | Emergency (ER) | payer MEDICARE, OTHER ==
[~2023-11-21] VITALS: Ht 180.3 cm; Wt 79.4 kg
[2023-11-21 12:01] VITALS: BP 129/74; TEMP 97.9
[2023-11-21] MEDS ORDERED: KETO10TA2 PO (12:18)
[2023-11-21] MEDS ORDERED: BACL5TAB PO (12:18)
[2023-11-21 12:35] VITALS: O2SAT 96
== END 2023-11-21 12:35 | disposition home or self-care (01) ==
LOC: ER 12:01
DX: M54.12 Radiculopathy, cervical region (principal); I10 Essential (primary) hypertension; K21.9 Gastro-esophageal reflux disease without esophagitis; F41.9 Anxiety disorder, unspecified; F31.9 Bipolar disorder, unspecified; F17.200 Nicotine dependence, unspecified, uncomplicated; Z79.899 Other long term (current) drug therapy; Z76.0 Encounter for issue of repeat prescription

== ENCOUNTER 2023-12-30 16:41 | Emergency (ER) | payer MEDICARE, OTHER ==
[~2023-12-30] VITALS: Ht 180.3 cm; Wt 79.4 kg
[~2023-12-30 16:41] MED LIST changes: +BACL5TAB PO; +KETO10TA2 PO
[2023-12-30 17:26] VITALS: BP 157/85; TEMP 98.2; O2SAT 99
[2023-12-30] MEDS ORDERED: BUPR-319 PO (18:05)
[2023-12-30] MEDS ORDERED: OMEP20CA15 PO (18:05)
[2023-12-30] MEDS ORDERED: IBUPROFEN 600 MG TABLET ONE (18:16)
[2023-12-30] MEDS: IBUPROFEN 600 MG TABLET PO ONE (18:18)
== END 2023-12-30 18:20 | disposition home or self-care (01) ==
LOC: ER 16:45
DX: M54.2 Cervicalgia (principal); K21.9 Gastro-esophageal reflux disease without esophagitis; F17.200 Nicotine dependence, unspecified, uncomplicated; F20.9 Schizophrenia, unspecified; F31.9 Bipolar disorder, unspecified; F41.9 Anxiety disorder, unspecified; G89.29 Other chronic pain; I10 Essential (primary) hypertension; Z76.0 Encounter for issue of repeat prescription; Z79.899 Other long term (current) drug therapy

== ENCOUNTER 2024-05-06 20:06 | Emergency (ER) | payer MEDICARE, OTHER ==
[~2024-05-06] VITALS: Ht 180.3 cm; Wt 75.7 kg
[~2024-05-06 20:06] MED LIST changes: +OMEP20CA15 PO
[2024-05-06 23:14] VITALS: BP 121/84; TEMP 98.1; O2SAT 98
== END 2024-05-06 23:10 | disposition home or self-care (01) ==
LOC: ER 20:09
DX: Z76.0 Encounter for issue of repeat prescription (principal); F17.200 Nicotine dependence, unspecified, uncomplicated; F31.9 Bipolar disorder, unspecified; F41.9 Anxiety disorder, unspecified; I10 Essential (primary) hypertension; Z79.899 Other long term (current) drug therapy